=== PATIENT | male | born 1960 | race Caucasian/White ===

== ENCOUNTER 2016-09-14 15:33 | Emergency (ER) | payer OTHER ==
[~2016-09-14] VITALS: Ht 190.5 cm; Wt 108.9 kg
[2016-09-14 17:17] VITALS: BP 104/77
== END 2016-09-14 17:19 | disposition home or self-care (01) ==
LOC: ER 15:33
DX: S01.112A Laceration without foreign body of left eyelid and periocular area, initial encounter (principal); S20.212A Contusion of left front wall of thorax, initial encounter; V86.99XA Unspecified occupant of other special all-terrain or other off-road motor vehicle injured in nontraffic accident, initial encounter; Y93.89 Activity, other specified; Y92.39 Other specified sports and athletic area as the place of occurrence of the external cause; Y99.8 Other external cause status

== ENCOUNTER 2016-09-22 15:50 | Emergency (ER) | payer OTHER ==
[~2016-09-22] VITALS: Ht 190.5 cm; Wt 108.9 kg
[2016-09-22 15:55] VITALS: BP 125/84
[2016-09-22] MEDS ORDERED: OMEPRAZOLE 20 M20 M1 PO (15:58)
[2016-09-22] MEDS ORDERED: LIPITOR10 MG PO (15:58)
== END 2016-09-22 16:10 | disposition home or self-care (01) ==
LOC: ER 15:50
DX: S01.112D Laceration without foreign body of left eyelid and periocular area, subsequent encounter (principal); F10.99 Alcohol use, unspecified with unspecified alcohol-induced disorder; W22.8XXD Striking against or struck by other objects, subsequent encounter; Y92.89 Other specified places as the place of occurrence of the external cause; Y99.8 Other external cause status